=== PATIENT | female | born 1950 | race Caucasian/White ===

== ENCOUNTER 2018-05-27 11:31 | Emergency (ER) | payer SELFPAY ==
[~2018-05-27] VITALS: Ht 157.5 cm; Wt 78.5 kg
[2018-05-27 12:26] VITALS: BP 132/84; Ht 157.5 cm; Wt 78.5 kg
== END 2018-05-27 15:04 | disposition left against medical advice (07) ==
LOC: ED 11:31
DX: Z53.21 Procedure and treatment not carried out due to patient leaving prior to being seen by health care provider (principal)